=== PATIENT | female | born 1980 | race Caucasian/White ===

== ENCOUNTER → 2017-06-22 | Outpatient (CLI) | payer OTHER ==
[~2017-06-22] MED LIST: IBUP80TA PO; PERCOCET PO
--- NOTE | 2017-06-23 07:21 | REP ---
SINUS SERIES: CLINICAL: Facial pain. TECHNIQUE: Cecilia Dawn', lateral and SMV views of the paranasal sinuses. FINDINGS: The sinuses are well aerated and without fluid levels. Minimal mucosal thickening in the maxillary sinuses cannot be excluded. The osseous structures are intact. Nasal bones and nasal septum are midline and normal. IMPRESSION: Cannot exclude minimal mucosal thickening to the maxillary sinuses. Otherwise normal examination.
== END ==
LOC: M CLY 09:58
PROVIDERS: ATTEND Family Medicine
DX: R51 Headache (principal)

== ENCOUNTER → 2017-10-14 | Outpatient (REF) | payer OTHER | LOC: M SFHCCLAY 16:27 | DX: N76.1 Subacute and chronic vaginitis (principal); Z12.4 Encounter for screening for malignant neoplasm of cervix ==

== ENCOUNTER → 2017-11-26 | Outpatient (REF) | payer OTHER ==
[2017-11-26 18:13] LABS: FREE T4 1.03 NG/DL (0.76-1.46)
[2017-11-26 18:32] LABS: IMMUNOGLOBULIN A < 7.8 MG/DL (70-400)
[2017-11-30 00:06] LABS: TISSUE TRANSGLUTAMINASE IgA <2 U/mL (0-3)
== END ==
LOC: M LABDRAWC 16:58
DX: R14.0 Abdominal distension (gaseous) (principal)

== ENCOUNTER 2018-01-13 11:33 | Day surgery (SDC) | payer OTHER ==
[2018-01-13] MEDS: NS 1,000 ML IV (11:45)
[2018-01-13] MEDS ORDERED: fentaNYL 100 MCG/2 ML INJECTION (J3010) As Ordered (13:14)
[2018-01-13] MEDS ORDERED: PROPOFOL 200 MG/20 ML VIAL As Ordered ×3 (13:48→13:49)
[2018-01-13] MEDS ORDERED: LIDOCAINE 2% INJ 100 MG/5 ML SDV (FOR ANES.) As Ordered (13:49)
== END 2018-01-13 14:24 | disposition home or self-care (01) ==
LOC: M OPP 11:33
DX: R10.84 Generalized abdominal pain (principal); K58.0 Irritable bowel syndrome with diarrhea; K64.8 Other hemorrhoids; D80.2 Selective deficiency of immunoglobulin A [IgA]; K31.89 Other diseases of stomach and duodenum; M94.0 Chondrocostal junction syndrome [Tietze]; R14.1 Gas pain; R06.83 Snoring; Z87.891 Personal history of nicotine dependence; Z88.8 Allergy status to other drugs, medicaments and biological substances; Z80.3 Family history of malignant neoplasm of breast
CPT/HCPCS: 45380

== ENCOUNTER → 2018-09-09 | Outpatient (REF) | payer OTHER ==
[~2018-09-09] MED LIST changes: +MULT1TAB10 PO; +NAPR-885 PO
[2018-09-13 00:06] LABS: ANA (HEP2) Negative (.); CYCLIC CITRULLINATED PEPTIDE 4 units (0-19)
== END ==
LOC: M SFHCCLAY 10:47
PROVIDERS: ATTEND Family Medicine
DX: M94.0 Chondrocostal junction syndrome [Tietze] (principal)

== ENCOUNTER → 2018-10-19 | Outpatient (REF) | payer OTHER ==
[~2018-10-19] MED LIST changes: +OXYC1TAB23 PO; -PERCOCET PO
== END ==
LOC: M SFHCPLAZ 10:25
PROVIDERS: ATTEND Dermatology
DX: D23.72 Other benign neoplasm of skin of left lower limb, including hip (principal)

== ENCOUNTER → 2018-12-21 | Outpatient (REF) | payer OTHER | LOC: M LAB REF 15:58 | PROVIDERS: ATTEND Physician Assistant | DX: R30.0 Dysuria (principal) ==

== ENCOUNTER → 2019-08-22 | Outpatient (CLI) | payer OTHER | LOC: M CLY 10:10 | PROVIDERS: ATTEND Family Medicine | DX: M79.89 Other specified soft tissue disorders (principal) ==

== ENCOUNTER → 2019-08-22 | Outpatient (CLI) | payer OTHER ==
--- NOTE | 2019-08-22 13:49 | REP ---
Right foot four views: No soft tissue calcifications are identified. Mineralization and joint spaces are unremarkable except for mild joint space narrowing of the great toe MTP articulation. There is a calcaneal plantar spur. Impression: Mild MTP joint space narrowing. Calcaneal plantar spur. No calcifications. Electronically Signed by Etienne Stanely MD 08/22/2019 01:41 P
== END ==
LOC: M CLY 10:27
PROVIDERS: ATTEND Family Medicine
DX: M79.89 Other specified soft tissue disorders (principal)

== ENCOUNTER → 2020-05-13 | Outpatient (CLI) | payer OTHER ==
--- NOTE | 2020-05-22 08:58 | REP ---
INDICATION: SCREENING MAMMO. Family history of breast cancer in 2 maternal aunts and paternal grandmother. COMPARISON: 09/14/2011. TECHNIQUE: MLO and CC views of bilateral breasts performed with tomosynthesis. FINDINGS: Moderate fibroglandular tissue is present bilaterally. A somewhat nodular asymmetric density is visualized in the medial aspect of the right breast. Diameter is approximately slightly greater than 2 cm. The medial margin is somewhat convex and nodular. Otherwise no mass, architectural distortion or clustered microcalcifications are seen bilaterally. The Volpara volumetric breast density pattern is C. IMPRESSION: BIRADS/ACR category 0 incomplete mammogram. Asymmetric somewhat nodular density slightly greater than 2 cm in diameter in the medial right breast. Recommend spot compression views and ultrasound to further evaluate. This patient's Tyrer-Cuzick lifetime breast cancer risk assessment score is 23.5%. Given the elevated lifetime risk of breast cancer, supplemental screening MRI of the breasts is recommended. This mammogram was interpreted with the aid of an FDA-approved computer-aided detection system. The patient states she had a clinical breast exam in April 2020. The patient letter being requested is M0. RECOMMENDATION: Recommend spot compression views and ultrasound right breast for medial asymmetric nodular density. <Electronically signed by Etienne Lebron > 05/22/20 [id number]
== END ==
LOC: M WHC 10:09
PROVIDERS: ATTEND Nurse Practitioner Women's Health
DX: Z12.31 Encounter for screening mammogram for malignant neoplasm of breast (principal); R92.8 Other abnormal and inconclusive findings on diagnostic imaging of breast; Z80.3 Family history of malignant neoplasm of breast

== ENCOUNTER → 2020-05-14 | Outpatient (REF) | payer OTHER | LOC: M SFHCWAGY 05-13 13:49 | PROVIDERS: ATTEND Nurse Practitioner Women's Health | DX: Z12.4 Encounter for screening for malignant neoplasm of cervix (principal) ==

== ENCOUNTER → 2020-05-29 | Outpatient (CLI) | payer OTHER ==
--- NOTE | 2020-05-30 09:46 | REP ---
INDICATION: ADDITIONAL VIEWS RT BREAST. Screening bilateral mammography from May 13, 2020 was BI-RADS category 0 incomplete due to an asymmetric lobulated density in the medial aspect of the right breast. COMPARISON: Comparison is made with remote prior mammography from 2012. In the interval since the screening study, and an outside prior mammography from [facility] has been retrieved along with focused right breast sonography dated January 01, 2017. TECHNIQUE: Magnified focal spot-compression images of the right breast are acquired in the craniocaudal, mediolateral, and mediolateral oblique projection. Targeted right breast sonography is also carried out. FINDINGS: Mammographic images confirm the presence of a somewhat lobulated asymmetric density in the medial aspect of the right breast at approximately 3 to 4 o'clock position. The lesion contains 3 or 4 punctate microcalcifications. It is larger than it was in 2017 and new compared to the 07/07 prior study. No spiculation is seen. No skin changes are noted. The remaining breast parenchyma is heterogeneously dense as before. The Volpara volumetric breast density pattern is C. Targeted ultrasound right breast: Inferomedial scanning in the right breast demonstrates a complex mixed solid and cystic oval-shaped mass with internal blood flow. It has overall dimensions are 2.9 x 1.5 x 2.5 cm. There are multiple cystic areas within the lesion the largest of which is 9 mm cystic component. Most of the cysts are under 5 mm but there is substantial soft tissue in the lesion as well. Its long axis is roughly parallel to the skin. It appears more prominent or larger than on the prior ultrasound. IMPRESSION: BIRADS/ACR category 4 suspicious right breast mammogram and sonographic findings. Biopsy recommended. This patient's Tyrer-Cuzick lifetime breast cancer risk assessment score is 23.5%. This mammogram was interpreted with the aid of an FDA-approved computer-aided detection system. RECOMMENDATION: Recommend ultrasound-guided needle biopsy right breast with marker clip and post clip placement mammography.. The patient letter being requested is M4. <Electronically signed by Jose Antonio Michaels > 05/30/20 0226
== END ==
LOC: M WHC 15:00
PROVIDERS: ATTEND Nurse Practitioner Women's Health
DX: Z12.31 Encounter for screening mammogram for malignant neoplasm of breast (principal); Z80.3 Family history of malignant neoplasm of breast

== ENCOUNTER → 2020-07-04 | Outpatient (CLI) | payer OTHER ==
[~2020-07-04] MED LIST changes: +ACET325C5 PO
--- NOTE | 2020-07-04 17:03 | REP ---
INDICATION: RT BREAST MASS,ABN MAMMO RT,US GUIDED BX. COMPARISON: None. TECHNIQUE: The procedure was performed under the general supervision of Dr. Lebron. The patient has a history of a 2.9 x 1.5 x 2.5 cm complex mixed solid and cystic hole shaped mass at the 3 o'clock position of the right breast seen on a previous ultrasound dated 05/29/2020. The risks and benefits of the procedure were explained to the patient and informed consent was obtained. The right breast nodule was localized using ultrasound guidance. The skin was prepped and draped in a sterile fashion. 1% Xylocaine was used as a local anesthetic. Using ultrasound guidance, a 14 gauge coaxial needle biopsy system was inserted and6 core biopsy samples were obtained. A marker clip was placed at the biopsy site The patient tolerated the procedure well and there were no immediate complications. After the appropriate amount of monitored convalescence, the patient was discharged from the department. FINDINGS: None IMPRESSION: Technically successful ultrasound-guided right breast biopsy with marker clip placement. <Electronically signed by Andrew Genao > 07/04/20 1602 <Electronically signed by Etienne Lebron > 07/04/20 [id number]
--- NOTE | 2020-07-04 17:04 | REP ---
INDICATION: RT BREAST MASS,ABN MAMMO RT,US GUIDED BX,POST BX. COMPARISON: 05/29/2020. TECHNIQUE: ML and CC views right breast performed. FINDINGS: Following ultrasound-guided biopsy of a right breast mass, these mammographic images show the biopsy clip at the site of the nodule as identified on the prior mammogram of 05/29/2020. IMPRESSION: Biopsy clip is in appropriate positioning at the site of the medially located right breast nodule. RECOMMENDATION: Clinical follow-up. <Electronically signed by Etienne Lebron > 07/04/20 [id number]
[2020-07-04 17:35] VITALS: BP 130/72
== END ==
LOC: M WHCPRO 14:01
PROVIDERS: ATTEND Nurse Practitioner Women's Health
DX: N60.11 Diffuse cystic mastopathy of right breast (principal)

== ENCOUNTER → 2020-12-31 | Outpatient (CLI) | payer OTHER ==
[~2020-12-31] MED LIST changes: +PROHANCE 279.3MG/ML 15ML VIAL As Ordered ONE; +PROHANCE 279.3MG/ML 5ML VIAL As Ordered ONE
--- NOTE | 2020-12-31 17:41 | REP ---
INDICATION: FAMILY HISTORY, PERSONAL HX CLARK SYNDROME. COMPARISON: Mammogram 05/13/2020, 05/29/2020 and ultrasound 05/29/2020. TECHNIQUE: Three Duyen MRI imaging was performed with a dedicated breast coil. Axial, coronal, and sagittal T1 and T2 weighted scans were obtained with and without fat saturation in the usual fashion. The study includes dynamically acquired post gadolinium-enhanced imaging with image subtraction. Maximum intensity projection and multi planar reformation imaging is included as well. This study is interpreted with the aid of Pitadela, an FDA approved computer aided detection (CAD) software program, on a dedicated breast MRI workstation. The gadolinium enhancement dose is 19 mL of intravenous ProHance. FINDINGS: There is moderate fibroglandular tissue bilaterally. There is no significant axillary adenopathy bilaterally. There is focal fibroglandular tissue with multiple subcentimeter cysts in the medial aspect of the right breast. This area measures about 3.5 x 2.5 cm. There is an internal biopsy clip from recent benign biopsy in this region. There is mild background parenchymal enhancement, and mild benign-appearing enhancement of the fibrocystic tissue in the medial right breast. There is no suspicious enhancing mass or morphologic abnormality. IMPRESSION: BI-RADS category 2 benign bilateral breast MRI. Fibrocystic tissue focally medially in the right breast has been recently biopsied and is benign. No suspicious enhancing mass or morphologic abnormality. Yearly supplemental screening MRI of the breasts is recommended for patients with an elevated lifetime risk of breast cancer of 20% or greater, in addition to annual screening mammography, staggered every 6 months. <Electronically signed by Etienne Lebron > 12/31/20 1320
== END ==
LOC: M RAD 15:06
PROVIDERS: ATTEND Nurse Practitioner Women's Health
DX: Z80.3 Family history of malignant neoplasm of breast (principal); Z91.89 Other specified personal risk factors, not elsewhere classified
CPT/HCPCS: 77049; A9576

== ENCOUNTER → 2021-01-31 | Outpatient (CLI) | payer OTHER ==
[~2021-01-31] MED LIST changes: -PROHANCE 279.3MG/ML 15ML VIAL As Ordered ONE; -PROHANCE 279.3MG/ML 5ML VIAL As Ordered ONE
== END ==
LOC: M WHC 10:00
PROVIDERS: ATTEND Nurse Practitioner Women's Health
DX: R92.8 Other abnormal and inconclusive findings on diagnostic imaging of breast (principal)

== ENCOUNTER → 2021-07-22 | Outpatient (CLI) | payer OTHER ==
--- NOTE | 2021-07-22 11:20 | REPMRS ---
Patient History The patient states she has not had a clinical breast exam in over a year. Family history of breast cancer at age 50 or over in maternal aunt, breast cancer at age 50 or over in maternal aunt, breast cancer at age 50 or over in paternal grandmother, colorectal cancer at age 49 in paternal cousin. Benign US guided breast biopsy. of the right breast, July 04, 2020. Benign US guided breast biopsy of the right breast, 2005. Took hormonal contraceptives for 2 years. Tomosynthesis is performed. Volpara breast density is c. Covid vaccines 09/27/20 left arm. 10/18/20 left arm. 05/16/21 left arm. Pt denied . Patient states no breast complaints today. Patient has signed MRS History Sheet. Digital Woman Screen Mammo: July 22, 2021 - Exam #: [id number] Bilateral CC and MLO view(s) were taken. Technologist: RT Jaylen Prior study comparison: July 04, 2020, right breast diagnostic unilateral mammo performed at [facility]. May 29, 2020, right breast diagnostic unilateral mammo performed at [facility]. FINDINGS: There are scattered fibroglandular densities. There is a fairly symmetric fibroglandular pattern in both breasts. There has been no interval development of masses, areas of architectural distortion or clusters of microcalcifications typical of malignancy. The nodule in the medial right breast is stable. It now contains a biopsy marking clip, status post benign biopsy. Assessment: BI-RADS/ACR category 2 mammogram. Benign Findings. Recommendation Routine screening mammogram of both breasts in 1 year (for women over age 40). This mammogram was interpreted with the aid of an FDA-approved computer-aided dectection system. The Lifetime Breast Cancer Risk is estimated at 23.0%. Yearly supplemental screening MRI of the breasts is recommended for patients with an elevated lifetime risk of breast cancer of 20% or greater, in addition to annual screening mammography, staggered every 6 months. Electronically Signed By: Etienne Lebron MD 07/22/21 [id number]
== END ==
LOC: M WHC 10:23
PROVIDERS: ATTEND Nurse Practitioner Women's Health
DX: Z12.31 Encounter for screening mammogram for malignant neoplasm of breast (principal)

== ENCOUNTER → 2021-11-20 | Outpatient (REF) | payer OTHER ==
[2021-11-20 11:57] LABS: HEMATOCRIT 40.4 % (36.0-47.0); HEMOGLOBIN 13.7 g/dl (12.0-15.5); MEAN CORPUSCULAR HEMOGLOBIN 31.4 pg (27.0-33.0); MEAN CORPUSCULAR HGB CONC 33.9 g/dl (32.0-36.5); MEAN CORPUSCULAR VOLUME 92.7 fl (80.0-96.0); PLATELET COUNT, AUTOMATED 221 10^3/uL (150-450); RED BLOOD COUNT 4.36 10^6/uL (4.00-5.40); WHITE BLOOD COUNT 4.6 10^3/uL (4.0-10.0)
[2021-11-20 12:55] LABS: BLOOD UREA NITROGEN 14 MG/DL (7-18); CALCIUM LEVEL 9.7 MG/DL (8.5-10.1); CARBON DIOXIDE LEVEL 30 MEQ/L (21-32); CHLORIDE LEVEL 106 MEQ/L (98-107); CREATININE FOR GFR 0.65 MG/DL (0.55-1.30); FREE T4 0.93 NG/DL (0.76-1.46); GLOMERULAR FILTRATION RATE > 60.0 (>58); GLUCOSE, FASTING 91 MG/DL (70-100); POTASSIUM SERUM 4.2 MEQ/L (3.5-5.1); SODIUM LEVEL 140 MEQ/L (136-145)
== END ==
LOC: M SFHCCLAY 08:24
PROVIDERS: ATTEND Family Medicine
DX: R42 Dizziness and giddiness (principal)

== ENCOUNTER → 2022-05-11 | Outpatient (REF) | payer OTHER | LOC: M PLALAB 12:59 | PROVIDERS: ATTEND Obstetrics & Gynecology | DX: Z01.419 Encounter for gynecological examination (general) (routine) without abnormal findings (principal) ==

== ENCOUNTER → 2022-08-17 | Outpatient (CLI) | payer OTHER ==
[~2022-08-17] MED LIST changes: +CETI5CHW PO; +ODOR100T3 PO; +VITA-243 PO; +VITA100093 PO; +VITMTA PO
== END ==
LOC: M LABSMTC 10:23
PROVIDERS: ATTEND Anesthesiology
DX: Z01.812 Encounter for preprocedural laboratory examination (principal); Z11.52 Encounter for screening for COVID-19

== ENCOUNTER 2022-08-20 10:49 | Day surgery (SDC) | payer OTHER ==
[~2022-08-20] VITALS: Ht 174 cm; Wt 99.5 kg
[~2022-08-20 10:49] MED LIST changes: +NS 1,000 ML IV ONE
[2022-08-20] MEDS ORDERED: LIDOCAINE 2% 100MG/5ML SDV (FOR ANES.) As Ordered ONE (11:46)
[2022-08-20] MEDS ORDERED: fentaNYL 100 MCG/2 ML INJECTION As Ordered ONE (11:46)
[2022-08-20] MEDS ORDERED: propofoL 500 MG/50 ML VIAL As Ordered ONE (11:46)
[2022-08-20] MEDS ORDERED: ONDANSETRON 4MG 2ML VIAL As Ordered ONE (11:55)
[2022-08-20 12:45] VITALS: BP 128/69
== END 2022-08-20 13:05 | disposition home or self-care (01) ==
LOC: M OPP 10:49
PROVIDERS: ATTEND Internal Medicine Gastroenterology
DX: Z15.09 Genetic susceptibility to other malignant neoplasm (principal); D80.2 Selective deficiency of immunoglobulin A [IgA]; K90.0 Celiac disease; Z79.52 Long term (current) use of systemic steroids; Z88.8 Allergy status to other drugs, medicaments and biological substances; Z84.81 Family history of carrier of genetic disease; Z80.3 Family history of malignant neoplasm of breast
CPT/HCPCS: 43239; 45378; 88305; J2405

== ENCOUNTER → 2022-09-16 | Outpatient (CLI) | payer OTHER ==
[~2022-09-16] MED LIST changes: -NS 1,000 ML IV ONE
== END ==
LOC: M CLY 10:40
PROVIDERS: ATTEND Nurse Practitioner Family
DX: M54.42 Lumbago with sciatica, left side (principal)

== ENCOUNTER → 2022-09-16 | Outpatient (REF) | payer OTHER ==
[2022-09-16 17:13] LABS: ALBUMIN 4.2 G/DL (3.2-5.2); ALKALINE PHOSPHATASE 58 U/L (46-116); ALT/SGPT 34 U/L (7.0-40); AST/SGOT 19 U/L (<34); BILIRUBIN,TOTAL 0.7 MG/DL (0.3-1.2); BLOOD UREA NITROGEN 12 MG/DL (9-23); CARBON DIOXIDE LEVEL 30 MMOL/L (20-31); CHLORIDE LEVEL 104 MMOL/L (98-107); CHOLESTEROL LEVEL 188 MG/DL (<200); CHOLESTEROL RISK RATIO 2.85 (<5); CREATININE FOR GFR 0.66 MG/DL (0.55-1.30); GLOMERULAR FILTRATION RATE > 60.0 (>58); GLUCOSE, FASTING 91 MG/DL (60-100); HDL CHOLESTEROL 65.8 MG/DL (>40); LDL CHOLESTEROL 111.4 MG/DL (<100); NON-HDL-C 122 MG/DL; POTASSIUM SERUM 4.1 MMOL/L (3.5-5.1); SODIUM LEVEL 140 MMOL/L (136-145); TOTAL PROTEIN 7.1 G/DL (5.7-8.2); TRIGLYCERIDES LEVEL 54 MG/DL (<150)
[2022-09-16 17:22] LABS: MEAN CORPUSCULAR HEMOGLOBIN 31.5 pg (27.0-33.0); MEAN CORPUSCULAR HGB CONC 33.3 g/dl (32.0-36.5); MEAN CORPUSCULAR VOLUME 94.4 fl (80.0-96.0); PLATELET COUNT, AUTOMATED 260 10^3/uL (150-450); RED BLOOD COUNT 4.45 10^6/uL (4.00-5.40); WHITE BLOOD COUNT 5.6 10^3/uL (4.0-10.0)
== END ==
LOC: M SFHCCLAY 09:59
PROVIDERS: ATTEND Nurse Practitioner Family
DX: Z15.09 Genetic susceptibility to other malignant neoplasm (principal); Z13.220 Encounter for screening for lipoid disorders

== ENCOUNTER → 2022-10-27 | Outpatient (CLI) | payer OTHER | LOC: M WHC 09:37 | PROVIDERS: ATTEND Obstetrics & Gynecology | DX: Z15.09 Genetic susceptibility to other malignant neoplasm (principal) ==

== ENCOUNTER 2022-11-20 12:12 | Day surgery (SDC) | payer OTHER ==
[~2022-11-20] VITALS: Ht 172.7 cm; Wt 98.9 kg
[~2022-11-20 12:12] MED LIST changes: +ACETAMINOPHEN 1000MG 100ML IV BAG As Ordered ONE; +IBUP-1022 PO; +LIDOCAINE 1% SDV 30ML VIAL As Ordered ONE; +LIDOCAINE 2% 100MG/5ML SDV (FOR ANES.) As Ordered ONE; +LR 1,000 ML IV SCH; +MIDAZOLAM INJ 2MG/2ML VIAL As Ordered ONE; +SILVER NITRATE APPLICATOR (1 = QTY 10) As Ordered ONE; +fentaNYL 100 MCG/2 ML INJECTION As Ordered ONE; +propofoL 200 MG/20 ML VIAL As Ordered ONE
[2022-11-20] MEDS ORDERED: KETOROLAC 60MG 2ML VIAL As Ordered ONE (12:14)
[2022-11-20] MEDS ORDERED: ONDANSETRON 4MG 2ML VIAL As Ordered ONE (12:14)
[2022-11-20] MEDS ORDERED: LR 1,000 ML IV SCH (12:45)
[2022-11-20 12:57] LABS: HEMATOCRIT 39.9 % (36.0-47.0); MEAN CORPUSCULAR HGB CONC 35.1 g/dl (32.0-36.5); MEAN CORPUSCULAR VOLUME 91.3 fl (80.0-96.0); PLATELET COUNT, AUTOMATED 192 10^3/uL (150-450); RED BLOOD COUNT 4.37 10^6/uL (4.00-5.40)
[2022-11-20] MEDS ORDERED: fentaNYL 100 MCG/2 ML INJECTION IV PRN (13:35)
[2022-11-20] MEDS ORDERED: ONDANSETRON 4MG 2ML VIAL IV PRN (13:35)
[2022-11-20] MEDS ORDERED: oxyCODONE 5MG TAB PO PRN (13:35)
[2022-11-20 14:23] VITALS: BP 118/65
== END 2022-11-20 14:51 | disposition home or self-care (01) ==
LOC: M SDC 12:12
PROVIDERS: ATTEND Obstetrics & Gynecology
DX: N85.00 Endometrial hyperplasia, unspecified (principal); Z84.81 Family history of carrier of genetic disease; K90.0 Celiac disease; M54.9 Dorsalgia, unspecified; J30.2 Other seasonal allergic rhinitis; Z88.8 Allergy status to other drugs, medicaments and biological substances; Z79.899 Other long term (current) drug therapy
CPT/HCPCS: 36415; 58558; 81025; 85027; 86850; 86900; 86901; 88305; J0131; J1100; J1885; J2250; J2405; J3010

== ENCOUNTER → 2023-03-26 | Outpatient (REF) | payer OTHER ==
[~2023-03-26] MED LIST changes: -ACETAMINOPHEN 1000MG 100ML IV BAG As Ordered ONE; -LIDOCAINE 1% SDV 30ML VIAL As Ordered ONE; -LIDOCAINE 2% 100MG/5ML SDV (FOR ANES.) As Ordered ONE; -LR 1,000 ML IV SCH; -MIDAZOLAM INJ 2MG/2ML VIAL As Ordered ONE; -SILVER NITRATE APPLICATOR (1 = QTY 10) As Ordered ONE; -fentaNYL 100 MCG/2 ML INJECTION As Ordered ONE; -propofoL 200 MG/20 ML VIAL As Ordered ONE
[2023-03-26 19:36] LABS: FOLLICLE STIMULATING HORMONE 6.4 mIU/ML
[2023-03-26 19:37] LABS: LUTEINIZING HORMONE 6.8 mIU/ML; PROLACTIN 6.36 NG/ML
== END ==
LOC: M SFHCCLAY 10:13
PROVIDERS: ATTEND Nurse Practitioner Family
DX: N93.9 Abnormal uterine and vaginal bleeding, unspecified (principal)

== ENCOUNTER → 2023-08-27 | Outpatient (REF) | payer OTHER ==
[2023-08-30 15:08] LABS: RUBELLA IgG FOR TORCH EVAL 1.61 index (Immune >0.99); RUBEOLA IgG ANTIBODY 46.6 AU/mL (Immune >16.4)
== END ==
LOC: M SFHCCLAY 15:15
PROVIDERS: ATTEND Nurse Practitioner Family
DX: Z23 Encounter for immunization (principal)

== ENCOUNTER → 2023-12-17 | Day surgery (SDC) | payer OTHER ==
[~2023-12-17] VITALS: Ht 172.1 cm; Wt 96.8 kg
[~2023-12-17] MED LIST changes: +KETOROLAC 60MG 2ML VIAL As Ordered ONE; +LIDOCAINE 2% 100MG/5ML SDV (FOR ANES.) As Ordered ONE; +LR 1,000 ML IV SCH; +MIDAZOLAM INJ 2MG/2ML VIAL As Ordered ONE; +OMEG10002 PO; +ONDANSETRON 4MG 2ML VIAL As Ordered ONE; +RA T500C2 PO; +ROCURONIUM BROMIDE 50MG/5ML VIAL As Ordered ONE; +SUGAMMADEX SODIUM 500 MG/5 ML VIAL (BRIDION) As Ordered ONE; +SUPETAB44 PO; +THERTAB52 PO; +ceFAZolin SOD 2 GM in IV 1 EA IV ONE; +fentaNYL 100 MCG/2 ML INJECTION As Ordered ONE; +propofoL 200 MG/20 ML VIAL As Ordered ONE
== END | disposition home or self-care (01) ==
LOC: M SDC 08:34
PROVIDERS: ATTEND Obstetrics & Gynecology
DX: N93.9 Abnormal uterine and vaginal bleeding, unspecified (principal); Z53.09 Procedure and treatment not carried out because of other contraindication

== ENCOUNTER 2024-02-25 05:59 | Day surgery (SDC) | payer OTHER ==
[2024-02-25] VITALS (7 sets, daily range): BP systolic 101–112; BP diastolic 58–73; TEMP 96.8–97.6; O2SAT 96–100
[~2024-02-25] VITALS: Ht 172.7 cm; Wt 98.9 kg
[~2024-02-25 05:59] MED LIST changes: -KETOROLAC 60MG 2ML VIAL As Ordered ONE; -LIDOCAINE 2% 100MG/5ML SDV (FOR ANES.) As Ordered ONE; -LR 1,000 ML IV SCH; -MIDAZOLAM INJ 2MG/2ML VIAL As Ordered ONE; -ONDANSETRON 4MG 2ML VIAL As Ordered ONE; -ROCURONIUM BROMIDE 50MG/5ML VIAL As Ordered ONE; -SUGAMMADEX SODIUM 500 MG/5 ML VIAL (BRIDION) As Ordered ONE; -ceFAZolin SOD 2 GM in IV 1 EA IV ONE; -fentaNYL 100 MCG/2 ML INJECTION As Ordered ONE; -propofoL 200 MG/20 ML VIAL As Ordered ONE
[2024-02-25 06:41] LABS: MEAN CORPUSCULAR HEMOGLOBIN 31.5 pg (27.0-33.0); MEAN CORPUSCULAR HGB CONC 34.1 g/dl (32.0-36.5); MEAN CORPUSCULAR VOLUME 92.1 fl (80.0-96.0); PLATELET COUNT, AUTOMATED 206 10^3/uL (150-450); RED BLOOD COUNT 4.45 10^6/uL (4.00-5.40); WHITE BLOOD COUNT 4.6 10^3/uL (4.0-10.0)
[2024-02-25] MEDS ORDERED: MIDAZOLAM INJ 2MG/2ML VIAL As Ordered ONE (07:14)
[2024-02-25] MEDS ORDERED: propofoL 200 MG/20 ML VIAL As Ordered ONE (07:14)
[2024-02-25] MEDS ORDERED: KETOROLAC 60MG 2ML VIAL As Ordered ONE (07:14)
[2024-02-25] MEDS ORDERED: ONDANSETRON 4MG 2ML VIAL As Ordered ONE (07:14)
[2024-02-25] MEDS ORDERED: fentaNYL 100 MCG/2 ML INJECTION As Ordered ONE (07:14)
[2024-02-25] MEDS ORDERED: SUGAMMADEX SODIUM 500 MG/5 ML VIAL (BRIDION) As Ordered ONE (07:14)
[2024-02-25] MEDS ORDERED: ROCURONIUM BROMIDE 50MG/5ML VIAL As Ordered ONE (07:14)
[2024-02-25] MEDS ORDERED: ACETAMINOPHEN 1000MG 100ML IV BAG As Ordered ONE (07:15)
[2024-02-25] MEDS ORDERED: LIDOCAINE 2% 100MG/5ML SDV (FOR ANES.) As Ordered ONE (07:17)
[2024-02-25] MEDS: ceFAZolin SOD 2 GM in IV 1 EA IV ONE (08:00)
[2024-02-25] MEDS ORDERED: KETAMINE HCL 200MG/20ML VIAL As Ordered ONE (08:00)
[2024-02-25] MEDS ORDERED: SCOPOLAMINE 1MG TRANSDERMAL PATCH As Ordered ONE (08:14)
[2024-02-25] MEDS: METHYLENE BLUE 0.5% (5MG/ML) 10 ML AMP (PROVAYBLUE) As Ordered ONE (08:45)
[2024-02-25] MEDS ORDERED: HYDROmorphone HCL 2MG/ML 1ML VIAL As Ordered ONE (09:41)
[2024-02-25] MEDS ORDERED: fentaNYL 100 MCG/2 ML INJECTION IV PRN (09:45)
[2024-02-25] MEDS ORDERED: oxyCODONE 5MG TAB PO PRN (09:45)
[2024-02-25] MEDS ORDERED: PERCOCET 5MG/325MG TAB PO PRN (09:50)
[2024-02-25] MEDS ORDERED: MORPHINE 4 MG/ML 1ML VIAL IV PRN (09:50)
[2024-02-25] MEDS ORDERED: ONDANSETRON 4MG 2ML VIAL IV PRN (09:50)
[2024-02-25] MEDS: LR 1,000 ML IV SCH ×2 (09:55→11:30)
[2024-02-25] MEDS ORDERED: PERCOCET PO (09:58)
[2024-02-25] MEDS ORDERED: COLA100C5 PO (09:58)
[2024-02-25] MEDS ORDERED: IBUP80TA PO (09:58)
[2024-02-25] MEDS: HYDROMORPHONE HCL 0.5 MG/ 0.5 ML SYRINGE IV PRN (10:01)
[2024-02-25] MEDS: ONDANSETRON 4MG 2ML VIAL IV PRN (10:13)
[2024-02-25] MEDS: METOCLOPRAMIDE INJ 10MG/2ML VIAL IV PRN (10:37)
[2024-02-25] MEDS ORDERED: KETOROLAC 30 MG/ML 1ML VIAL IV SCH (13:00)
[2024-02-25] MEDS: PERCOCET 5MG/325MG TAB PO PRN (14:53)
[2024-02-25] MEDS: KETOROLAC 30 MG/ML 1ML VIAL IV SCH (16:41)
[2024-02-26] MEDS ORDERED: IBUPROFEN 800 MG TAB PO SCH (15:00)
== END 2024-02-25 18:05 | disposition home or self-care (01) ==
LOC: M SDC 05:59 → M PED 11:30 → M SDC 18:05
PROVIDERS: ATTEND Obstetrics & Gynecology
DX: N93.9 Abnormal uterine and vaginal bleeding, unspecified (principal); N85.8 Other specified noninflammatory disorders of uterus; N83.292 Other ovarian cyst, left side; N83.12 Corpus luteum cyst of left ovary; N83.02 Follicular cyst of left ovary; Z15.09 Genetic susceptibility to other malignant neoplasm; N83.8 Other noninflammatory disorders of ovary, fallopian tube and broad ligament; Z98.51 Tubal ligation status; K90.0 Celiac disease; Z88.8 Allergy status to other drugs, medicaments and biological substances; Z91.018 Allergy to other foods; J30.81 Allergic rhinitis due to animal (cat) (dog) hair and dander
CPT/HCPCS: 36415; 58571; 81025; 85027; 86850; 86900; 86901; 88307; J0131; J0665; J0690; J1100; J1170; J1885; J2250; J2405; J2765; J3010; Q9968; S2900

== ENCOUNTER → 2024-06-06 | Outpatient (CLI) | payer OTHER ==
[~2024-06-06] MED LIST changes: +AMOX875T2 PO; +COLA100C5 PO; +ELDE350C PO; +PERCOCET PO
== END ==
LOC: M CLY 08:48
PROVIDERS: ATTEND Physician Assistant
DX: R05.1 Acute cough (principal)

== ENCOUNTER → 2024-06-21 | Outpatient (CLI) | payer OTHER | LOC: M CLY 15:51 | PROVIDERS: ATTEND Nurse Practitioner Family | DX: J20.9 Acute bronchitis, unspecified (principal) ==

== ENCOUNTER → 2024-06-21 | Outpatient (REF) | payer OTHER | LOC: M SFHCCLAY 15:17 | PROVIDERS: ATTEND Nurse Practitioner Family | DX: J20.9 Acute bronchitis, unspecified (principal); R00.2 Palpitations ==

== ENCOUNTER → 2024-06-22 | Outpatient (REF) | payer OTHER ==
[2024-06-22 17:04] LABS: EOS # 0.1 10^3/uL (0.0-0.5); EOS % 1.7 % (0.0-3.0); HEMATOCRIT 38.4 % (36.0-47.0); HEMOGLOBIN 13.2 g/dl (12.0-15.5); LYMPH # 1.4 10^3/uL (1.5-5.0); MEAN CORPUSCULAR HEMOGLOBIN 31.4 pg (27.0-33.0); MEAN CORPUSCULAR HGB CONC 34.4 g/dl (32.0-36.5); MEAN CORPUSCULAR VOLUME 91.4 fl (80.0-96.0); MONO # 0.4 10^3/uL (0.0-0.8); MONO % 10.5 % (2.0-8.0); NEUTROPHILS # 2.1 10^3/uL (1.5-8.5); NEUTROPHILS % 51.6 % (36.0-66.0); PLATELET COUNT, AUTOMATED 229 10^3/uL (150-450); WHITE BLOOD COUNT 4.1 10^3/uL (4.0-10.0)
[2024-06-22 17:10] LABS: ALBUMIN 3.9 G/DL (3.2-5.2); ALKALINE PHOSPHATASE 63 U/L (35-104); ALT/SGPT 44 U/L (7.0-40); AST/SGOT 19 U/L (<34); BILIRUBIN,TOTAL 0.6 MG/DL (0.3-1.2); BLOOD UREA NITROGEN 14 MG/DL (9-23); CALCIUM LEVEL 9.8 MG/DL (8.5-10.1); CARBON DIOXIDE LEVEL 29 MMOL/L (20-31); CHLORIDE LEVEL 107 MMOL/L (98-107); CREATININE FOR GFR 0.73 MG/DL (0.55-1.30); GLOMERULAR FILTRATION RATE > 60.0 (>58); GLUCOSE, FASTING 97 MG/DL (60-100); MAGNESIUM LEVEL 2.1 MG/DL (1.8-2.4); POTASSIUM SERUM 4.2 MMOL/L (3.5-5.1); SODIUM LEVEL 141 MMOL/L (136-145); TOTAL PROTEIN 6.8 G/DL (5.7-8.2)
== END ==
LOC: M SFHCCLAY 09:42
PROVIDERS: ATTEND Nurse Practitioner Family
DX: J20.9 Acute bronchitis, unspecified (principal); R00.2 Palpitations

== ENCOUNTER 2024-08-24 06:50 | Day surgery (SDC) | payer OTHER ==
[~2024-08-24] VITALS: Ht 172.7 cm; Wt 98.2 kg
[~2024-08-24 06:50] MED LIST changes: +IBUP200C89 PO; +LIDOCAINE 2% 100MG/5ML SDV (FOR ANES.) As Ordered ONE; +propofoL 200 MG/20 ML VIAL As Ordered ONE
[2024-08-24] MEDS ORDERED: GLYCOPYRROLATE INJ 0.2 MG/ML 2 ML VIAL As Ordered ONE (06:54)
[2024-08-24 08:36] VITALS: TEMP 97.2
[2024-08-24 08:56] VITALS: BP 119/67; O2SAT 99
== END 2024-08-24 09:03 | disposition home or self-care (01) ==
LOC: M OPP 06:50
PROVIDERS: ATTEND Internal Medicine Gastroenterology
DX: Z15.09 Genetic susceptibility to other malignant neoplasm (principal); Z88.8 Allergy status to other drugs, medicaments and biological substances; Z91.018 Allergy to other foods; Z91.048 Other nonmedicinal substance allergy status; Z79.899 Other long term (current) drug therapy
CPT/HCPCS: 45378; J1596

== ENCOUNTER → 2025-07-03 | Outpatient (CLI) | payer OTHER ==
[~2025-07-03] MED LIST changes: -IBUP-1022 PO; +IBUP600T42 PO; -LIDOCAINE 2% 100MG/5ML SDV (FOR ANES.) As Ordered ONE; -RA T500C2 PO; +TURM500C10 PO; -propofoL 200 MG/20 ML VIAL As Ordered ONE
== END ==
LOC: M WHC 10:40
PROVIDERS: ATTEND Obstetrics & Gynecology
DX: Z12.31 Encounter for screening mammogram for malignant neoplasm of breast (principal)

== ENCOUNTER → 2025-07-03 | Outpatient (CLI) | payer OTHER ==
[2025-07-03 19:09] LABS: PLATELET COUNT, AUTOMATED 277 10^3/uL (150-450)
[2025-07-03 19:16] LABS: ALT/SGPT 26 U/L (7.0-40); AST/SGOT 19 U/L (<34); CALCIUM LEVEL 9.8 MG/DL (8.5-10.1); CARBON DIOXIDE LEVEL 28 MMOL/L (20-31); CHLORIDE LEVEL 103 MMOL/L (98-107); CREATININE FOR GFR 0.73 MG/DL (0.55-1.30); GLOMERULAR FILTRATION RATE > 90.0 (>58); POTASSIUM SERUM 4.2 MMOL/L (3.5-5.1); SODIUM LEVEL 138 MMOL/L (136-145)
[2025-07-03 19:17] LABS: ESTRADIOL 120.5 PG/ML
[2025-07-03 19:18] LABS: LUTEINIZING HORMONE 4.4 mIU/ML
[2025-07-03 19:19] LABS: ESTIMATED AVERAGE GLUCOSE 97.0 MG/DL (60-110)
== END ==
LOC: M PLALAB 13:15
PROVIDERS: ATTEND Obstetrics & Gynecology
DX: Z12.72 Encounter for screening for malignant neoplasm of vagina (principal); N95.1 Menopausal and female climacteric states